=== PATIENT | male | born 1940 | race Caucasian/White ===

== ENCOUNTER → 2017-05-12 | Outpatient (REF) | payer OTHER ==
[2017-05-12 17:14] LABS: ANION GAP 5 MEQ/L (8-16); BLOOD UREA NITROGEN 19 MG/DL (7-18); CALCIUM LEVEL 8.6 MG/DL (8.8-10.2); CARBON DIOXIDE LEVEL 29 MEQ/L (21-32); CHLORIDE LEVEL 103 MEQ/L (98-107); CREATININE FOR GFR 0.94 MG/DL (0.70-1.30); GLOMERULAR FILTRATION RATE > 60.0 (>42); GLUCOSE, FASTING 154 MG/DL (83-110); POTASSIUM SERUM 4.1 MEQ/L (3.5-5.1); SODIUM LEVEL 137 MEQ/L (136-145)
[2017-05-12 20:43] LABS: DIFF SLIDE NUMBER 296
[2017-05-12 20:44] LABS: MEAN CORPUSCULAR HEMOGLOBIN 31.1 pg (27.0-33.0); MEAN CORPUSCULAR HGB CONC 34.6 g/dl (32.0-36.5); MEAN CORPUSCULAR VOLUME 89.8 fl (80.0-96.0); PLATELET COUNT, AUTOMATED 128 k/mm3 (150-450)
[2017-05-12 20:45] LABS: ADD MORPHOLOGY? NO
[2017-05-12 21:38] LABS: EOSINOPHILS 4 % (0-5)
[2017-05-12 22:08] LABS: ERYTHROCYTE SEDIMENTATION RATE 49 mm/hr (0-20)
== END ==
LOC: M LAB REF 16:27
PROVIDERS: ATTEND Physician Assistant
DX: J18.9 Pneumonia, unspecified organism (principal); L27.1 Localized skin eruption due to drugs and medicaments taken internally

== ENCOUNTER → 2019-05-09 | Outpatient (CLI) | payer OTHER ==
--- NOTE | 2019-05-09 15:20 | REP ---
Clinical: Left shoulder pain. Technique: Internal rotation, external rotation, and Y view of the left shoulder. Findings: Cortical irregularity and spurring at the acromioclavicular joint is appreciated with small periarticular calcified loose body measuring approximately 2 mm. Subtle blunting to the glenoid rim. Humeral head appears intact and normal. Subacromial space is normal. 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 Electronically Signed by Gamaliel Berrios MD 05/09/2019 03:11 P
== END ==
LOC: M WUC 15:00
PROVIDERS: ATTEND Physician Assistant
DX: M19.012 Primary osteoarthritis, left shoulder (principal)